=== PATIENT | female | born 1945 | race Caucasian/White ===

== ENCOUNTER 2020-05-18 16:44 | Observation (INO) ==
[2020-05-18] MEDS ORDERED: Isovue-370 500 ML BOTTLE IVP ONE (16:54)
[2020-05-18 17:55] LABS: Hematocrit 43.7 % (35.3-44.9); Mean Corpuscular Hemoglobin 26.3 pg (28.0-33.3); Mean Platelet Volume 10.9 fL (9.4-12.4); Platelet Count 290 K/mcL (140-400); Red Blood Count 5.33 M/mcL (3.82-4.97); Red Cell Distribution Width 13.8 % (11.5-14.5); White Blood Count 17.2 K/mcL (4.3-11.1)
[2020-05-18 17:59] LABS: INR 1.4
[2020-05-18 18:02] LABS: Activated Partial Thrombo Time 55.7 Seconds (26.0-36.0)
[2020-05-18 18:18] LABS: BUN/Creatinine Ratio 24 (6-26); Blood Urea Nitrogen 24 mg/dL (8-23); Calcium 9.1 mg/dL (8.6-10.3); Carbon Dioxide 24 mEq/L (23-29); Chloride 104 mEq/L (98-107); Glucose 127 mg/dL (70-105); Osmolality,Calculated 290 (280-300); Potassium 3.9 mEq/L (3.5-5.1); Sodium 137 mEq/L (136-145); Troponin I < 0.03 ng/mL (< 0.04); eGFR For African Americans > 60 (> 60); eGFR For Non-African Americans 54 (> 60)
[2020-05-18] MEDS ORDERED: Naloxone 0.4 MG/ML INJ IVP PRN (20:38)
[2020-05-18] MEDS ORDERED: Ondansetron 4 MG/2 ML VIAL IVP PRN (20:38)
[2020-05-18] MEDS ORDERED: *HR* Promethazine 25 MG/ML VIAL IM PRN (20:38)
[2020-05-18] MEDS ORDERED: Acetaminophen 325 MG TABLET PO PRN (20:38)
[2020-05-18] MEDS ORDERED: Perflutren Lipid Microsphere 1.3 ML in 0.9 % Sodium Chloride 8.7 ML IVP PRN (20:39)
[2020-05-18 20:57] LABS: Bilirubin,Urine Negative (Negative); Blood,Urine Negative (Negative); Clarity,Urine Clear (Clear); Color,Urine Colorless (Yellow); Glucose,Urine (UA) Normal (Normal); Ketones,Urine Negative (Negative); Leukocyte Esterase,Urine Negative (Negative); Nitrite,Urine Negative (Negative); PH,Urine 6.5 pH Units (5.0-8.0); Protein,Urine Negative (Neg-Trace); Specific Gravity,Urine 1.009 (1.010-1.025); Urobilinogen,Urine Normal (Normal)
[2020-05-18] MEDS: *HR* Dabigatran 150 MG CAPSULE PO SCH (21:45)
[2020-05-19 06:23] LABS: Basophils # 0.1 K/mcL (0.0-0.2); Basophils % 0.4 %; Eosinophils # 0.2 K/mcL (0.0-0.6); Eosinophils % 1.3 %; Hematocrit 43.9 % (35.3-44.9); Hemoglobin 13.5 g/dL (11.5-15.4); Immature Granulocytes % 0.4 % (0-4); Lymphocytes # 2.7 K/mcL (0.6-4.6); Lymphocytes % 19.9 %; Mean Corpuscular HGB Conc 30.8 g/dL (31.6-35.5); Mean Corpuscular Hemoglobin 25.5 pg (28.0-33.3); Monocytes # 0.5 K/mcL (0.0-1.3); Monocytes % 3.7 %; Neutrophils # 10.2 K/mcL (1.6-8.9); Platelet Count 297 K/mcL (140-400); Red Blood Count 5.29 M/mcL (3.82-4.97); Red Cell Distribution Width 14.1 % (11.5-14.5); Segmented Neutrophils % 74.3 %; White Blood Count 13.6 K/mcL (4.3-11.1)
[2020-05-19 06:26] LABS: Estimated Average Glucose 140 mg/dl; Hemoglobin A1C 6.5 %
[2020-05-19 06:30] LABS: INR 1.5; Prothrombin Time 17.4 Seconds (9.4-12.1)
[2020-05-19 06:52] LABS: BUN/Creatinine Ratio 20 (6-26); Blood Urea Nitrogen 19 mg/dL (8-23); Calcium 8.8 mg/dL (8.6-10.3); Carbon Dioxide 24 mEq/L (23-29); Chloride 105 mEq/L (98-107); Chol/HDL Ratio 3.2 (0-4.9); Cholesterol 142 mg/dL (< 200); Glucose 102 mg/dL (70-105); HDL Cholesterol 44 mg/dL (40-59); LDL Cholesterol,Calculated 81 mg/dL (< 100); Magnesium 2.1 mg/dL (1.6-2.6); Osmolality,Calculated 288 (280-300); Potassium 4.1 mEq/L (3.5-5.1); Sodium 138 mEq/L (136-145); Triglycerides 84 mg/dL (< 150); Troponin I < 0.03 ng/mL (< 0.04); eGFR For African Americans > 60 (> 60); eGFR For Non-African Americans 59 (> 60)
[2020-05-19] MEDS: *HR* Dabigatran 150 MG CAPSULE PO SCH (07:54)
[2020-05-19] MEDS ORDERED: Aspirin Enteric Coated 81 MG Tablet PO SCH (09:00)
[2020-05-19] MEDS ORDERED: DilTIAZem CD (24hr) 120 MG CAP.ER.24H PO SCH (09:00)
[2020-05-19 11:30] VITALS: BP 144/88
[2020-05-19 13:08] LABS: Folate 7.1 ng/mL (3.0-16.0)
== END 2020-05-19 14:49 | disposition home or self-care (01) ==
LOC: 3BNU 16:44 → EMEROOARM 16:44 → SUATTDRO 20:28 → 3BNU 20:53
PROVIDERS: ADMIT Internal Medicine; ATTEND Internal Medicine